=== PATIENT | female | born 1945 | race Caucasian/White ===

== ENCOUNTER 2017-08-18 11:31 | Emergency (ER) | payer MEDICARE ==
[2017-08-18 11:47] VITALS: RESP 18
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
[2017-08-18 13:09] LABS: Anisocytosis Slight; Basophils % (A) 1 %; Eosinophils # (A) 0.1 k/uL (0-0.7); Eosinophils % (A) 2 %; HCT 31.1 % (34.0-46.0); HGB 9.4 gm/dL (11.4-16.0); Hypochromasia Marked; Lymphocytes # (A) 1.2 k/uL (1.0-4.8); Lymphocytes % (A) 24 %; MCH 23.1 pg (25.0-35.0); MCHC 30.2 g/dL (31.0-37.0); MCV 76.6 fL (80.0-100.0); Mean Platelet Volume 7.1; Microcytosis Slight; Monocytes # (A) 0.3 k/uL (0-1.0); Monocytes % (A) 6 %; Neutrophils # (A) 3.3 k/uL (1.3-7.7); Neutrophils % (A) 66 %; Platelet Count 325 k/uL (150-450); RBC 4.06 m/uL (3.80-5.40); RDW 16.3 % (11.5-15.5); WBC 5.1 k/uL (3.8-10.6)
--- NOTE | 2017-08-18 13:09 | XR ---
EXAMINATION TYPE: XR chest 2V DATE OF EXAM: 08/18/2017 COMPARISON: NONE HISTORY: Shortness of breath TECHNIQUE: Frontal and lateral views of the chest are obtained. FINDINGS: Scattered senescent parenchymal changes noted. Hyperinflation compatible with COPD. No evidence for infiltrate. No evidence for atelectasis. Heart size is stable. Mediastinal structures are stable and grossly unremarkable. No evidence for hilar prominence. Degenerative changes dorsal spine. IMPRESSION: 1. No evidence for acute pulmonary disease.
[2017-08-18 13:17] LABS: Prothrombin Time 10.1 sec (9.0-12.0)
[2017-08-18 13:20] LABS: Albumin 4.4 g/dL (3.5-5.0); Calcium 9.5 mg/dL (8.4-10.2); Potassium 4.5 mmol/L (3.5-5.1); Total Bilirubin 0.3 mg/dL (0.2-1.3); Total Protein 7.1 g/dL (6.3-8.2)
[2017-08-18 13:29] LABS: Creatine Kinase 65 U/L (30-135)
[2017-08-18 13:31] LABS: Partial Thromboplastin Time 21.6 sec (22.0-30.0)
[2017-08-18 13:39] LABS: Creatine Kinase MB 0.4 ng/mL (0.0-2.4)
[2017-08-18 13:54] LABS: Troponin I <0.012 ng/mL (0.000-0.034)
--- NOTE | 2017-08-18 14:07 | US ---
EXAMINATION TYPE: US venous doppler duplex UE LT DATE OF EXAM: 08/18/2017 COMPARISON: NONE CLINICAL HISTORY: Pain. Left shoulder and arm pain. Left hand tingling SIDE PERFORMED: left Left Arm: No evidence of DVT as visualized. Difficult to visualize cephalic vein Grayscale, color doppler, spectral doppler imaging performed of the deep veins of the left upper extr emity. There is normal flow, compressibility and vascular waveforms. Superficial left basilic vein s how satisfactory color flow and compressibility. Cephalic vein show satisfactory compressibility with suboptimal identification of color flow. IMPRESSION: No ultrasound evidence for acute deep or superficial vein thrombus in the left upper extremity.
[2017-08-18 14:38] VITALS: BP 124/76; PULSE 88; TEMP 97.3
== END 2017-08-18 14:38 | disposition home or self-care (01) ==
LOC: EC 11:31
DX: M25.512 Pain in left shoulder (principal); M79.602 Pain in left arm; E78.5 Hyperlipidemia, unspecified; I11.0 Hypertensive heart disease with heart failure; I50.9 Heart failure, unspecified; Z87.891 Personal history of nicotine dependence; Z79.82 Long term (current) use of aspirin; Z79.899 Other long term (current) drug therapy; Z88.5 Allergy status to narcotic agent; Z88.6 Allergy status to analgesic agent
CPT/HCPCS: 36415; 71046; 80053; 82550; 82553; 84484; 85025; 85610; 85730; 93005; 99284

== ENCOUNTER 2018-03-24 11:38 | Emergency (ER) | payer MEDICARE ==
[2018-03-24 11:49] VITALS: BP 156/84; PULSE 91; RESP 18; TEMP 97.9
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
[2018-03-24 14:10] LABS: Anisocytosis Slight; Basophils # (A) 0.1 k/uL (0-0.2); Basophils % (A) 1 %; Eosinophils # (A) 0.2 k/uL (0-0.7); Eosinophils % (A) 3 %; HCT 40.3 % (34.0-46.0); HGB 12.6 gm/dL (11.4-16.0); Hypochromasia Slight; Lymphocytes # (A) 1.3 k/uL (1.0-4.8); Lymphocytes % (A) 22 %; MCHC 31.4 g/dL (31.0-37.0); MCV 86.1 fL (80.0-100.0); Mean Platelet Volume 7.3; Microcytosis Slight; Monocytes # (A) 0.3 k/uL (0-1.0); Monocytes % (A) 6 %; Neutrophils % (A) 67 %; Platelet Count 255 k/uL (150-450); RBC 4.68 m/uL (3.80-5.40); RDW 19.4 % (11.5-15.5); WBC 6.1 k/uL (3.8-10.6)
[2018-03-24 14:18] LABS: Albumin 4.5 g/dL (3.5-5.0); Calcium 9.9 mg/dL (8.4-10.2); Magnesium 2.1 mg/dL (1.6-2.3); Total Bilirubin 0.4 mg/dL (0.2-1.3)
--- NOTE | 2018-03-24 14:24 | XR ---
Cervical spine HISTORY: Neck pain 5 views of the cervical spine and 6 images There is multilevel spondylosis. Loss of disc height present greatest at C4-5, C5-6 and C6-7. Bone mi neralization is reduced. Prevertebral soft tissues are unremarkable. Cervical vertebral bodies show p reserved height and alignment. Apical scarring vascular calcifications suspected around the carotid b ulbs. No significant foraminal encroachment on the left, on the right at C5-6 there is lateral extens ion of endplates. IMPRESSION: Degenerative disc disease, consider cervical MRI. Osteopenia.
[2018-03-24 14:31] LABS: Creatine Kinase MB 0.3 ng/mL (0.0-2.4)
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
== END 2018-03-24 15:08 | disposition home or self-care (01) ==
LOC: EC 11:38
DX: S16.1XXA Strain of muscle, fascia and tendon at neck level, initial encounter (principal); M54.12 Radiculopathy, cervical region; I11.0 Hypertensive heart disease with heart failure; I50.9 Heart failure, unspecified; E78.5 Hyperlipidemia, unspecified; Z87.891 Personal history of nicotine dependence; Z79.82 Long term (current) use of aspirin; Z79.899 Other long term (current) drug therapy; Z88.5 Allergy status to narcotic agent; Z88.6 Allergy status to analgesic agent; X58.XXXA Exposure to other specified factors, initial encounter
CPT/HCPCS: 36415; 71046; 72050; 80053; 82550; 82553; 83735; 83880; 85025; 99284